=== PATIENT | female | born 1980 | race Caucasian/White ===

== ENCOUNTER 2019-10-24 14:47 | Outpatient (CLI) | payer BC, SELFPAY ==
--- NOTE | ~2019-10-24 | XR_ITS ---
EXAMINATION: XR knee RT min 4V DATE: 10/24/2019 15:20 INDICATION: Right knee pain. TECHNIQUE: 4 views of right knee were obtained. COMPARISON: Right knee radiographs 11/09/2016 FINDINGS: Bone alignment is normal. There is an old fracture of proximal tibia involving the medial a nd lateral tibial plateaus and intercondylar eminence with malunion. On the lateral view, a posterior fracture fragment demonstrates 7 mm posterior displacement, and there is likely a gap at the articul ar surface. There is mild tricompartmental osteoarthritis. There is a small knee joint effusion. Ther e are loose bodies in the knee joint. IMPRESSION: 1. 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 If there is clinical concern for acute fracture, consider CT. 2. 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 3. Small knee joint effusion with loose bodies. Reviewed, dictated and finalized at location [facility]. IMPRESSION: 1. 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 If there is clinical concern for acute fracture, c onsider CT. 2. 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 3. Small knee joint effusion with loose bodies.
== END 2019-10-24 14:48 | disposition home or self-care (01) ==
PROVIDERS: PCP Internal Medicine; Visit Provider Internal Medicine
DX: M25.561 Pain in right knee (principal)
CPT/HCPCS: 73564

== ENCOUNTER 2020-01-24 08:02 | Outpatient (CLI) | payer BC, SELFPAY ==
--- NOTE | ~2020-01-24 | MR_ITS ---
EXAMINATION: MR knee RT wo con DATE: 01/24/2020 09:23 INDICATION: Right knee pain TECHNIQUE: Magnetic resonance imaging (MRI) of the right knee was performed without intravenous contr ast. Sequences included coronal PD-weighted FSE, coronal PD-weighted FS FSE, sagittal T2-weighted FS E, sagittal PD-weighted FS FSE and axial PD weighted fat saturated FSE. 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 There are several foci of susceptibility artifa ct along the margins of the fracture suggesting prior attempted fixation. There is an additional smal l chronic nonunited fracture fragment at the posterior medial aspect of the medial tibial plateau. Partial-thickness cartilage loss in place involving greater than 50% of the cartilage thickness and w ith chondral surface irregularity along both the medial lateral tibial plateaus and weightbearing med ial and lateral femoral condyles. There is scattered subarticular edema and cystic change along the m edial femoral condyle and tiny central subchondral osteophytes along the anterior to central weightbe aring lateral femoral condyle. Shallow chondral ulceration and fissuring at the inferior aspect of th e patella with small osteophyte at the inferior aspect of the patellar apical ridge. Evaluation of the menisci is limited by the distortion in anatomy resulting from the displaced fractu re. The medial meniscus appears to remain grossly intact with the posterior horn extending along the cleft of the nonunited fracture. There is a full-thickness radial tear at the anterior body of the la teral meniscus with separation of the tear margins. Partial-thickness chondral ulceration at the ceph alad aspect of the trochlear groove and adjacent lateral trochlea. Chondral surface regularity along the Likely complete tear of the anterior cruciate ligament with irregular lax appearing ligament fibe rs and with mild anterior subluxation of the tibia relative to the distal femur. The posterior crucia te ligament as well as the medial and fibular collateral ligaments appear intact. The visualized medi al and lateral hamstring tendons as well as the iliotibial band are normal. The extensor mechanism is normal. Physiologic amount of fluid in the right knee joint space. IMPRESSION: 1. 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 2. Complete tear of the anterior cruciate ligament with mild anterior separation of the main tibial f ragment relative to the distal femur. 3. Mild secondary tricompartmental osteoarthritis at the right knee with high-grade chondral malacia in the medial and lateral compartments and moderate grade chondral malacia in the patellofemoral comp artment. Reviewed, dictated and finalized at location A. IMPRESSION: 1. 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 2. Complete tear of the anterior cruciate ligament with mild anterior separatio n of the main tibial fragment relative to the distal femur. 3. Mild secondary tricompartmental osteoarthritis at the right knee with high-g rade chondral malacia in the medial and lateral compartments and moderate grade chondral malacia in the patellofemoral compartment.
== END 2020-01-24 08:03 | disposition home or self-care (01) ==
PROVIDERS: PCP Internal Medicine; Visit Provider Internal Medicine
DX: M25.561 Pain in right knee (principal)
CPT/HCPCS: 73721

== ENCOUNTER 2020-01-28 09:34 | Outpatient (CLI) | payer BC, SELFPAY ==
--- NOTE | ~2020-01-28 | XR_ITS ---
EXAMINATION: XR tibia fibula RT 2V INDICATION: Right leg pain TECHNIQUE: Two views of the right tibia and fibula are obtained. COMPARISON: 10/24/2019 FINDINGS: A chronic fracture deformity of the medial and lateral tibial plateaus with nonunion is aga in noted and not significantly changed. No additional acute osseous findings are evident. Orthopedic hardware is present in the calcaneus. IMPRESSION: 1. No acute osseous abnormality. Reviewed, dictated and finalized at location A.
== END 2020-01-28 09:35 | disposition home or self-care (01) ==
PROVIDERS: PCP Internal Medicine; Visit Provider Internal Medicine
DX: M79.661 Pain in right lower leg (principal)
CPT/HCPCS: 73590

== ENCOUNTER 2020-08-10 14:44 | Outpatient (CLI) | payer BC, SELFPAY ==
--- NOTE | ~2020-08-10 | CT_ITS ---
EXAMINATION: CT abdomen pelvis wo con DATE: 08/10/2020 15:12 INDICATION: Left flank pain. Microhematuria. TECHNIQUE: Computed tomography (CT) of the abdomen and pelvis was performed without intravenous contr ast. Automated exposure control and iterative reconstruction technique were employed. The dose-length product was 612.65 mGy-cm. COMPARISON: CT abdomen and pelvis 01/26/2017 FINDINGS: The visualized portions of the lung bases are clear without pneumonia or pleural effusion. The heart size is normal. No pericardial effusion. The liver, gallbladder, spleen, pancreas, adrenal glands, and left kidney are normal. There are two 3 mm stones in right kidney. There is a 6 mm stone in the distal left ureter. There are no dilated loops of bowel. The appendix is normal. There are no pathologically enlarged lymph nodes. There is no free intraperitoneal fluid. There is mild lumbar spo ndylosis. IMPRESSION: 1. 6 mm stone in distal left ureter. No hydronephrosis. 2. Two 3 mm nonobstructing right kidney stones. Reviewed, dictated and finalized at location A. EDITOR
== END 2020-08-10 14:45 | disposition home or self-care (01) ==
LOC: CHSIMG 14:48
PROVIDERS: PCP Internal Medicine; Visit Provider Internal Medicine
DX: R10.9 Unspecified abdominal pain (principal); R31.9 Hematuria, unspecified
CPT/HCPCS: 74176

== ENCOUNTER 2021-02-23 08:17 | Outpatient (CLI) | payer BC, SELFPAY ==
--- NOTE | ~2021-02-23 | CT_ITS ---
EXAMINATION: CT sinus wo con DATE: 02/23/2021 08:33 INDICATION: Chronic sinusitis. Left eye pain with pressure. Maxillary pain. TECHNIQUE: Computed tomography (CT) of the paranasal sinuses was performed without intravenous contra st. The dose-length product was 279.81 mGy-cm. Automated exposure control and iterative reconstructio n technique were employed. COMPARISON: No prior studies for comparison. FINDINGS: There is no significant mucosal thickening. No air-fluid levels. No mucoperiosteal reaction . Rightward nasal septal deviation. Ostiomeatal units are patent. Mastoids are pneumatized. IMPRESSION: 1. No significant sinus disease. Reviewed, dictated and finalized at location A.
== END 2021-02-23 08:18 | disposition home or self-care (01) ==
LOC: CHSIMG 08:18
PROVIDERS: PCP Internal Medicine; Visit Provider Internal Medicine
DX: J32.9 Chronic sinusitis, unspecified (principal)
CPT/HCPCS: 70486

== ENCOUNTER 2021-05-04 09:24 | Outpatient (CLI) | payer BC, SELFPAY ==
--- NOTE | ~2021-05-04 | MM_ITS ---
EXAMINATION: MM screening tianna BI w pam HISTORY: Baseline screening mammogram TECHNIQUE: Craniocaudal and mediolateral oblique 3-D tomosynthesis images were obtained and synthetic 2-D images were generated. CAD analysis was submitted and interpreted. COMPARISON: None, baseline BREAST PARENCHYMAL COMPOSITION: There are scattered areas of fibroglandular density. FINDINGS: RIGHT BREAST: An asymmetry is present in the middle third of the central breast on the craniocaudal v iew 6 cm from the nipple. LEFT BREAST: There is no evidence of suspicious mass, calcification, or architectural distortion to s uggest malignancy. IMPRESSION: 1. Right breast asymmetry on the craniocaudal view. 2. Additional mammographic views and possible breast ultrasound are recommended to evaluate for malig anup and establish a baseline given that this is the first mammographic examination. BI-RADS Category 0: Incomplete: Needs additional imaging evaluation. Reviewed, dictated and finalized at location A. IMPRESSION: 1. Right breast asymmetry on the craniocaudal view. 2. Additional mammographic views and possible breast ultrasound are recommended to evaluate for malignancy and establish a baseline given that this is the fir st mammographic examination. BI-RADS Category 0: Incomplete: Needs additional imaging evaluation.
== END 2021-05-04 09:25 | disposition home or self-care (01) ==
LOC: CHSIMG 09:25
PROVIDERS: PCP Internal Medicine; Visit Provider Student in an Organized Health Care Education/Training Program
DX: Z12.31 Encounter for screening mammogram for malignant neoplasm of breast (principal)
CPT/HCPCS: 77063; 77067

== ENCOUNTER 2021-05-13 09:47 | Outpatient (CLI) | payer BC, SELFPAY ==
--- NOTE | ~2021-05-13 | MMUS_ITS ---
EXAMINATION: MM diagnostic tianna RT w pam, US breast RT limited HISTORY: Follow-up right breast asymmetries TECHNIQUE: Additional 3-D tomosynthesis images of the right breast were performed and synthetic 2-D i mages were generated. CAD analysis was submitted and interpreted. High resolution Limited right breas t ultrasound was performed. COMPARISON: 05/04/2021 BREAST PARENCHYMAL COMPOSITION: Breast composed of scattered areas of fibroglandular density. FINDINGS: MAMMOGRAPHIC FINDINGS: There are persistent asymmetries in the upper central-lateral aspect of the right breast. No discrete mass or suspicious calcifications. ULTRASOUND: Limited left breast ultrasound: At 10:00, 10 cm from the nipple, there is a cluster of adjacent cysts measuring up to 5 mm in aggregate, likely corresponding to asymmetries. No suspicious masses to sugg est malignancy. IMPRESSION: 1. No evidence for malignancy in the right breast. Benign findings. 2. Routine yearly screening mammogram and regular clinical breast examination are recommended. BI-RADS Category 2: Benign finding(s). Reviewed, dictated and finalized at location A. IMPRESSION: 1. No evidence for malignancy in the right breast. Benign findings. 2. Routine yearly screening mammogram and regular clinical breast examination a re recommended. BI-RADS Category 2: Benign finding(s).
== END 2021-05-13 09:48 | disposition home or self-care (01) ==
LOC: CHSIMG 09:48
PROVIDERS: PCP Internal Medicine; Visit Provider Student in an Organized Health Care Education/Training Program
DX: R92.8 Other abnormal and inconclusive findings on diagnostic imaging of breast (principal)
CPT/HCPCS: 76642; 77061; 77065; G0279

== ENCOUNTER 2022-06-14 08:30 | Outpatient (CLI) | payer BC, SELFPAY ==
--- NOTE | ~2022-06-14 | MM_ITS ---
EXAMINATION: MM screening tianna BI w pam HISTORY: Screening TECHNIQUE: Craniocaudal and mediolateral oblique 3-D tomosynthesis images were obtained and synthetic 2-D images were generated. CAD analysis was submitted and interpreted. COMPARISON: 05/04/2021 BREAST PARENCHYMAL COMPOSITION: There are scattered areas of fibroglandular density. FINDINGS: There is no evidence of suspicious mass, calcification, or architectural distortion to sugg est malignancy in either breast. There has been no suspicious interval change. IMPRESSION: 1. No mammographic evidence of malignancy. 2. Recommend routine screening mammography in one year. BI-RADS Category 1: Negative Reviewed, dictated and finalized at location A. ION LEADER
== END 2022-06-14 08:31 | disposition home or self-care (01) ==
LOC: CHSIMG 08:30
PROVIDERS: PCP Internal Medicine; Visit Provider Internal Medicine
DX: Z12.31 Encounter for screening mammogram for malignant neoplasm of breast (principal)
CPT/HCPCS: 77063; 77067

== ENCOUNTER 2022-08-04 16:55 | Outpatient (RCR) | payer BC, SELFPAY ==
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
--- NOTE | 2022-09-11 10:19 | PTOPREEVAL ---
Assessment and note entered by Milvia Siegel DPT Evaluation Information Assessment Status Re-evaluation Diagnosis R TKR Onset 07/14/2022 Subjective Information Patient reports she is improving and walking better. She reports the bending of the knee is less painful but she is still limited. she reports heavy house hold chores continue to be difficulty . She has been able to ambulate for times up to 30 minutes. Due to limitd ROM he reports MD is thinking she will need a manipulation. RTMD for possible manipulation on 09/21/22 Reported Pain Level Pain Score 3: Self Report Assessment PT Clinical Summary Patient has been seen from 08/04/22 to 09/11/22. She has made good progress towards all goals but continues to lack R knee flexion ROM. She has improved strength and abiity to ambulate prolonged distances and navigate stairs. She continues to have difficulty with heavy house hold chores and would benefit from continued skilled PT to address impairments and return to PLOF. Plan of Care Interventions Electrical Stimulation,Gait Training,Hot Pack/Cold Pack,Intermittent Compression,Manual Therapy, Neuro Re-education,Therapeutic Activities, Therapeutic Exercise PT Services Indicated Yes Treatment Frequency and 2x weekly for 10 visits Duration These treatments will address the objective and functional deficits as defined above. The patient will be advanced safely and appropriately in order for the patient to progress towards his/her prior level of function. Additional exercises will be introduced and as well as a comprehensive home exercise program upon discharge, if needed, ?to ensure carryover of functional gains achieved in the clinic. This treatment plan has been reviewed and agreement upon by the patient.
--- NOTE | 2022-10-04 08:56 | PTOPREEVAL ---
Assessment and note entered by JT File, PT Evaluation Information Assessment Status Re-evaluation Diagnosis R TKR Onset 07/14/2022 Subjective Information patient reports the R knee feels Better overall, but continues to be tight and limited in knee flexion. she reports she follows up with the surgeon next sunday. Reported Pain Level Pain Score 0: Self Report Assessment PT Clinical Summary mrs. german presents to skilled PT services for her skilled PT visit. since her manipulation, she has been coming to therapy 5x weekly. today, she presents with improved strength of the R knee, improved flexion rom of the R knee, and improved gait mechanics. however, she continues to have a slight hitch in ambulation, slight decreased strength of the R knee, and has not achieved full post operative goals for R knee flexion passive or active. she would benefit from continued skilled PT to continue to address her deficits and achieve all goals for skilled PT to return to prior level funcitonal activity performance. Plan of Care Interventions Gait Training,Manual Therapy,Neuro Re-education, Therapeutic Activities,Therapeutic Exercise PT Services Indicated Yes PT Services Indicated Yes Treatment Frequency and continue skilled PT 2 more visits this week and Duration then 3x weekly for 6 visits for a total of 8 more visits after today. These treatments will address the objective and functional deficits as defined above. The patient will be advanced safely and appropriately in order for the patient to progress towards his/her prior level of function. Additional exercises will be introduced and as well as a comprehensive home exercise program upon discharge, if needed, ?to ensure carryover of functional gains achieved in the clinic. This treatment plan has been reviewed and agreement upon by the patient.
--- NOTE | 2022-10-26 17:48 | PTOPPROG ---
Assessment and note entered by Emily Belle, PT Evaluation Information Assessment Status Progress Diagnosis R TKA Onset 07/14/23 Subjective Information Keri Luu reports she fell onto her right knee on 10/21/22 when was taking something to her in their yard. She felt 3 pops in her knee as she fell and she has had increased pain since then. She called her doctor and was told that as long as the pain is improving she is doing okay. She feels she has been having less bending ability since the fall. She does not have a follow up with her physician at this time. Assessment PT Clinical Summary Keri Luu has completed 31 skilled PT visits following a right total knee arthroplasty and subsequent manipulation. She is reporting increased right knee pain and less movement since she fell on her right knee on 10/21/22. She objectively demonstrates a mild regression in right knee extension strength as well as a regression in right knee active and passive flexion ROM. She demonstrates tenderness at the right patella tendon and distal quadriceps, decreased and painful right knee A/PROM, decreased right knee extension strength, and impaired gait. She will continue to benefit from skilled PT to further address these physical and functional deficits. Plan of Care Interventions Electrical Stimulation,Hot Pack/Cold Pack, Intermittent Compression,Manual Therapy,Neuro Re- education,Patient/Caregiver Educati,Therapeutic Activities,Therapeutic Exercise PT Services Indicated Yes Treatment Frequency and 3 times a week for 12 visits Duration These treatments will address the objective and functional deficits as defined above. The patient will be advanced safely and appropriately in order for the patient to progress towards his/her prior level of function. Additional exercises will be introduced and as well as a comprehensive home exercise program upon discharge, if needed, ?to ensure carryover of functional gains achieved in the clinic. This treatment plan has been reviewed and agreement upon by the patient.
== END 2022-10-26 18:18 | disposition still patient (30) ==
LOC: CHSPT 16:55
DX: Z47.1 Aftercare following joint replacement surgery (principal); M25.561 Pain in right knee; Z96.651 Presence of right artificial knee joint
CPT/HCPCS: 97014; 97016; 97110; 97112; 97140; 97161; 97530; G0283

== ENCOUNTER 2022-10-30 16:59 | Outpatient (RCR) | payer BC, SELFPAY ==
--- NOTE | 2022-12-12 17:37 | PTOPDC ---
Assessment and note entered by Emily Belle, PT Evaluation Information Assessment Status Discharge Diagnosis R TKA Onset 07/14/22 Subjective Information Keri Luu reports her right knee is doing well overall. She still gets some pain after performing yard work and she has discomfort at night causing difficulty sleeping. Right knee stiffness is steadily improving as well. She is able to perform daily activities well and can ascend/descend stairs reciprocally. She feels she has improved 90% overall and is ready to be discharged from PT. Reported Pain Level Pain Score 0: Self Report Assessment PT Clinical Summary Keri Luu has completed 43 skilled PT visits following a right total knee arthroplasty and subsequent manipulation. She is reporting a 90% overall improvement since her surgery and is able to perform all daily activities including reciprocal stair ascending/descending without difficulty. She objectively demonstrates improved right knee active ROM to functional measurements, gait without an assistive device with equilateral weight bearing and stride length, and LE strength to good throughout. She will be discharged from skilled PT this date. Plan of Care PT Services Indicated No
== END 2022-12-12 08:37 | disposition home or self-care (01) ==
LOC: CHSPT 16:59
DX: Z47.1 Aftercare following joint replacement surgery (principal); M25.561 Pain in right knee; M24.661 Ankylosis, right knee; Z96.651 Presence of right artificial knee joint
CPT/HCPCS: 97110; 97112; 97140; 97530; 97750

== ENCOUNTER 2023-03-27 12:38 | Outpatient (CLI) | payer BC, SELFPAY ==
--- NOTE | ~2023-03-27 | US_ITS ---
Pelvic ultrasound. Clinical History: Dysfunctional uterine bleeding Technique: Realtime transabdominal and transvaginal scanning of the pelvis was performed. Color flow Doppler and Doppler spectral analysis were performed. Findings: The uterus is anteverted. The endometrial stripe has a thickness of 9 mm. No focal mass is identified. The right ovary measures 1.8 x 1.8 x 1.4 cm. No significant right ovarian or adnexal mass is seen. The left ovary measures 3.4 x 2.5 x 3.6 cm. Left ovarian cyst measures 2.7 cm in diameter. There is no evidence of free fluid in the cul de sac. Impression: 2.7 cm left ovarian cyst, of doubtful clinical significance. Reviewed, dictated and finalized at [facility]. Impression: 2.7 cm left ovarian cyst, of doubtful clinical significance.
== END 2023-03-27 12:39 | disposition home or self-care (01) ==
LOC: CHSIMG 12:39
PROVIDERS: PCP Internal Medicine; Visit Provider Nurse Practitioner Family
DX: N93.8 Other specified abnormal uterine and vaginal bleeding (principal); N83.202 Unspecified ovarian cyst, left side
CPT/HCPCS: 76830; 76856

== ENCOUNTER 2023-05-17 08:04 | Outpatient (CLI) | payer BC, SELFPAY ==
--- NOTE | ~2023-05-17 | XR_ITS ---
XR barium swallow DATE: 05/17/2023 10:26 INDICATION: Dysphagia TECHNIQUE: Fluoroscopy, rapid sequence spot images and overhead radiographs during swallowing of ge um contrast material. 0.6 minutes fluoroscopy time 12.554 Gycm2 total DAP COMPARISON: None FINDINGS: There is normal deglutition and esophageal peristalsis. No stricture, mucosal fold thickeni ng, ulceration, diverticulum or intraluminal mass lesion of the esophagus is detected. There is a small sliding hiatal hernia. IMPRESSION: Small sliding hiatal hernia; otherwise negative Reviewed, dictated and finalized at [facility]. Reviewed, dictated and finalized at location B.
== END 2023-05-17 08:05 | disposition home or self-care (01) ==
LOC: CHSIMG 08:05
PROVIDERS: PCP Internal Medicine; Visit Provider Internal Medicine
DX: R13.10 Dysphagia, unspecified (principal); K44.9 Diaphragmatic hernia without obstruction or gangrene
CPT/HCPCS: 74220

== ENCOUNTER 2023-05-31 01:26 | Day surgery (SDC) | payer BC, SELFPAY ==
[2023-05-22 13:33] VITALS: BMI 35.5
[2023-05-31 07:07] VITALS: BP 152/97; PULSE 90; RESP 20; TEMP 36.4; O2SAT 99
[2023-05-31] MEDS: LACTATED RINGERS 1,000 ML 150 ML IV CONT (07:19)
--- NOTE | 2023-05-31 07:35 | WPDANESEPPF ---
Anes - Initial Pre Proc Eval Procedure: Operation Date: 05/31/23 08:00 Proposed Procedures p Esophagogastroduodenoscopy - Jay Funez DO Date/Time: 05/31/23 07:35 Surgeon: Jay Funez DO Pre Op Diagnosis: dysphagia Patient Data Age: 42 Gender: F Height: 1.6 m Weight: 91.2 kg Last Vital Signs Temp 97.5 F L 05/31/23 07:07 Pulse 90 05/31/23 07:07 Resp 20 05/31/23 07:07 BP 152/97 H 05/31/23 07:07 Pulse Ox 99 05/31/23 07:07 O2 Del Method Room Air 05/31/23 07:07 Allergies Allergy/AdvReac Type Severity Reaction Status Date / Time gabapentin AdvReac Intermediate Other Verified 05/31/23 07:06 Home Medications Medication Instructions Recorded Confirmed Type hydrocodone 5 mg-acetaminophen 325 1 tablet PO Q8H PRN Pain 03/23/21 05/22/23 History mg tablet verapamil 240 mg 24 hr 240 mg PO DAILY 03/23/21 05/22/23 History capsule,extended release ibuprofen 800 mg tablet 800 mg PO BID 04/13/21 05/22/23 History magnesium oxide 400 mg PO DAILY 04/12/23 05/22/23 History multivitamin (Daily Multi-Vitamin 1 tablet PO DAILY 04/12/23 05/22/23 History tablet) ubrogepant 100 mg tablet (Ubrelvy) 100 mg PO ONCE PRN Migraine 04/12/23 05/22/23 History Headache pantoprazole 40 mg tablet,delayed 40 mg PO DAILY 05/22/23 05/22/23 History release Patient hx anesthesia problems: none Family hx anesthesia problems: none Results Review: All pre-operative results and documents have been reviewed as part of the pre-operative evaluation. [facility] Past Medical History Medical History Calcaneus fracture Hypertension Migraine headache Seasonal allergies Tibial plateau fracture, left Surgical History Surgical History History of arthroscopy of right knee History of bilateral tubal ligation [place] teeth removed Family History Family History Mother Depression Hypertension Diabetes mellitus Sibling Hypertension Grandparent Diabetes mellitus Hypertension Cerebrovascular accident Father Alcoholism Social History Social History Smoking status: Never smoker Smoking end date: 07/30/10 Alcohol intake: never Alcohol use details: social Substance use: never Substance use type: does not use Lack of Transportation: No Lack of Food: Never True Current Housing: I Have Housing Concerned About Future Housing: No Difficulty Paying Gas/Electric Bills: No Difficulty Paying for Meds: No Currently Unemployed: No Education: High School Diploma/GED Difficulty w/ Childcare or Family Care: No Living arrangements: with family Gender identity (if verbalized by the patient): Female Spiritual care concerns: No Agree to blood products: Yes Anes - Eval Final PreProcedure Day of Procedure 05/31/23 07:35 Patient weight: obese Heart: regular rate and rhythm Lungs: clear to auscultation Airway: Mallampati scale class II Neurological: alert and oriented Last oral intake: >/= 8 hours ASA classification: III Emergent: no Anesthetic plan: proceed Anesthesia type and monitoring: general GIVS and standard monitoring Results Review: All pre-operative results and documents have been reviewed as part of the pre-operative evaluation. Informed Consent: The patient's anesthetic plan and its attendant risks and benefits were discussed with the patient/family/POA. Questions were solicited and answers provided to the satisfaction of the patient/family/POA.
--- NOTE | 2023-05-31 07:53 | PM.IMHP ---
H&P: HPI History of Present Illness Date/Time: 05/31/23 07:53 Chief Complaint: Dysphagia Narrative: This is a 42-year-old woman who presents for occasional dysphagia with solids. She denies any dysphagia with liquids. She has had to regurgitate food at times. She does also report a history of GERD. She takes pantoprazole daily and this helps. She denies any hematemesis. Review of Systems Review of Systems: All systems reviewed & are unremarkable except as noted in HPI and below Constitutional: Constitutional: Denies chills, Denies fever(s), Denies headache(s) and Denies weight loss Eyes: Eyes: Denies change in vision ENT: Denies dizziness, Denies headache(s), Denies neck mass and Denies throat swelling Cardiovascular: Cardiovascular: Denies chest pain, Denies lightheadedness and Denies dyspnea Respiratory: Respiratory: Denies cough, Denies dyspnea and Denies wheezing Gastrointestinal: Gastrointestinal: Denies abdominal pain, Denies change in bowel habits, Denies nausea and Denies vomiting Genitourinary: Genitourinary: Denies hematuria and Denies dysuria Musculoskeletal: Musculoskeletal: Reports as per HPI Integumentary/Breasts: Skin/Breast: Reports as per HPI Neurologic: Denies dizziness and Denies headache(s) Allergic/Immunologic: Allergic/Immunologic: Denies throat swelling and Denies wheezing PMF Past Medical History Medical History Calcaneus fracture Hypertension Migraine headache Seasonal allergies Tibial plateau fracture, left Surgical History Surgical History History of arthroscopy of right knee History of bilateral tubal ligation [place] teeth removed Family History Family History Mother Depression Hypertension Diabetes mellitus Sibling Hypertension Grandparent Diabetes mellitus Hypertension Cerebrovascular accident Father Alcoholism Social History Social History Smoking status: Never smoker Smoking end date: 07/30/10 Alcohol intake: never Alcohol use details: social Substance use: never Substance use type: does not use Lack of Transportation: No Lack of Food: Never True Current Housing: I Have Housing Concerned About Future Housing: No Difficulty Paying Gas/Electric Bills: No Difficulty Paying for Meds: No Currently Unemployed: No Education: High School Diploma/GED Difficulty w/ Childcare or Family Care: No Living arrangements: with family Gender identity (if verbalized by the patient): Female Spiritual care concerns: No Agree to blood products: Yes Meds Home Medications and Allergies Home Medications Medication Instructions Recorded Confirmed Type hydrocodone 5 mg-acetaminophen 325 1 tablet PO Q8H PRN Pain 03/23/21 05/22/23 History mg tablet verapamil 240 mg 24 hr 240 mg PO DAILY 03/23/21 05/22/23 History capsule,extended release ibuprofen 800 mg tablet 800 mg PO BID 04/13/21 05/22/23 History magnesium oxide 400 mg PO DAILY 04/12/23 05/22/23 History multivitamin (Daily Multi-Vitamin 1 tablet PO DAILY 04/12/23 05/22/23 History tablet) ubrogepant 100 mg tablet (Ubrelvy) 100 mg PO ONCE PRN Migraine 04/12/23 05/22/23 History Headache pantoprazole 40 mg tablet,delayed 40 mg PO DAILY 05/22/23 05/22/23 History release Allergies Allergy/AdvReac Type Severity Reaction Status Date / Time gabapentin AdvReac Intermediate Other Verified 05/31/23 07:06 Vital Signs Vital Signs - 24 hr 05/31/23 07:07 Temperature 36.4 C L Pulse Rate 90 Respiratory Rate 20 Blood Pressure 152/97 H Pulse Oximetry 99 Oxygen Delivery Room Air Exam Const: General: no acute distress and alert Orientation/consciousness: patient oriented x3 HENMT: Head: normocephalic and atraumatic Ears: h
[2023-05-31 08:11] VITALS: BP 136/85; PULSE 78; RESP 22; O2SAT 99
[2023-05-31 08:21] VITALS: BP 131/90; PULSE 70; RESP 23; O2SAT 98
[2023-05-31 08:31] VITALS: BP 149/90; PULSE 72; RESP 24; O2SAT 98
== END 2023-05-31 08:34 | disposition home or self-care (01) ==
PROVIDERS: PCP Internal Medicine; Visit Provider Surgery
PROC: 0DJ08ZZ Inspection of Upper Intestinal Tract, Via Natural or Artificial Opening Endoscopic (ICD-10-PCS; CPT 43235; principal; 2023-05-31 08:00)
DX: R13.19 Other dysphagia (principal); K21.00 Gastro-esophageal reflux disease with esophagitis, without bleeding; K44.9 Diaphragmatic hernia without obstruction or gangrene; I10 Essential (primary) hypertension; Z82.3 Family history of stroke; Z79.891 Long term (current) use of opiate analgesic; E66.9 Obesity, unspecified; Z68.35 Body mass index [BMI] 35.0-35.9, adult
CPT/HCPCS: 43239; 88305; J2704; J7120

== ENCOUNTER 2023-06-15 07:29 | Outpatient (CLI) | payer BC, SELFPAY ==
--- NOTE | ~2023-06-15 | MM_ITS ---
EXAMINATION: MM screening [facility] BI w pam HISTORY: Screening mammogram TECHNIQUE: Craniocaudal and mediolateral oblique 3-D tomosynthesis images were obtained and synthetic 2-D images were generated. CAD analysis was submitted and interpreted. COMPARISON: 06/14/2022, 05/13/2021, 05/04/2021 BREAST PARENCHYMAL COMPOSITION: There are scattered areas of fibroglandular density. FINDINGS: No suspicious mass, calcification, or architectural distortion are identified in either [place] ast to suggest malignancy. There has been no suspicious interval change. IMPRESSION: 1. No mammographic evidence of malignancy. 2. Recommend routine screening mammography in one year. BI-RADS Category 1: Negative Reviewed, dictated and finalized at location A. 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
== END 2023-06-15 07:30 | disposition home or self-care (01) ==
LOC: CHSIMG 07:30
PROVIDERS: PCP Internal Medicine; Visit Provider Registered Nurse
DX: Z12.31 Encounter for screening mammogram for malignant neoplasm of breast (principal)
CPT/HCPCS: 77063; 77067

== ENCOUNTER 2024-03-20 13:21 | Outpatient (CLI) | payer OTHER, SELFPAY ==
--- NOTE | 2024-03-20 13:28 | ECG_ITS ---
Test Date: 2024-03-20 13:50:02 Measurements Intervals [place] Rate: 87 P: 47 UT: 178 QRS: 11 QRSD: 78 T: 2 QT: 349 QTc: 421 Interpretive Statements SINUS RHYTHM POSSIBLE LEFT ATRIAL ENLARGEMENT [-0.1mV P WAVE IN V1/V2] No previous ECG available for comparison Electronically Signed On 03-20-2024 15:17:40 CDT by Raj Borrego M.D.
== END 2024-03-20 13:22 | disposition home or self-care (01) ==
PROVIDERS: PCP Internal Medicine; Visit Provider Obstetrics & Gynecology
DX: N92.0 Excessive and frequent menstruation with regular cycle (principal); I10 Essential (primary) hypertension; Z01.818 Encounter for other preprocedural examination
CPT/HCPCS: 36415; 86850; 86900; 86901; 93005

== ENCOUNTER 2024-03-26 01:26 | Day surgery (SDC) | payer OTHER, SELFPAY ==
[2024-03-18 10:41] VITALS: BMI 35.7
--- NOTE | 2024-03-18 11:12 | PC.NURSE ---
Report to the Outpatient Waiting Room, entrance under the green pavilion located off [facility], at 0600 on 03-26-24. Planned Procedure Time: 07. Time changes happen often and if your time is changed the preop area will call you the afternoon before. - You and your visitor will be asked to self-screen and do not enter if you have any COVID symptoms. - A mask is optional within the hospital at this time. Patients may have clear liquids (water, carbonated beverages, clear teas, apple juice) until 3 hours prior to surgery with a maximum of 20 ounces. 0430 - No food from midnight until time of surgery - Infants may have breast milk until 4 hours before surgery, formula 6 hours prior to surgery. - Children will be allowed to drink immediately following surgery. If applicable, please bring a bottle or sippy cup to assist with drinking. Juice, water, soda, and popsicles are readily available. For infants on formula, please bring formula the day of surgery. Pacifiers are allowed. Take the following medications with a SIP of water the morning of surgery: [place] if needed DO NOT STOP ANY OF YOUR OTHER PRESCRIPTION MEDICATIONS PRIOR TO SURGERY ?EXCEPT THE FOLLOWING Medications to discontinue per physician: vitamins and supplements; ibuprofen Date to take last dose: 03-23-24; Per Dr. Saldaña Please no make-up, nail lebanese, hairspray, perfume, deodorant, or body powder the day of surgery. No jewelry (including any body piercings) or valuables the day of surgery, leave them at home. Please take a shower or bath the night before, or the morning of, surgery with an antibacterial soap. Wear comfortable, loose fitting clothing. Children are encouraged to wear pajamas. - Jewelry must be removed prior to entering the operating room. Rings and piercings that are not removed may be cut off. - The hospital will not accept responsibility for valuables. - Please leave all valuables, including medications, at home the day of surgery. If you are going home after surgery, a licensed otr flatbed company truck driver must drive you home. - NO public transportation without another adult if you receive anesthesia. - We recommend that an adult stay with you for 24 hours following discharge. - We also recommend that you do not drive, make important decision, drink alcoholic beverages, or take any drugs that were not prescribed by your health care provider for at least 24 hours after your discharge time. For Pediatric surgeries, we recommend two adults accompany the child home. Follow any additional instructions given to you from your surgeon. If you or anyone in your household have experienced Covid symptoms in the past week, please notify your surgeon or the nurse liaison at the phone number below for possible testing. Telephone instructions given to Keri Luu and asked if any additional questions and then verbalized understanding. Patient advised to call surgeon office or pre surgery nurse liaison [phone] if any additional questions.
[2024-03-26] VITALS (13 sets, daily range): BP systolic 132–159; BP diastolic 72–98; PULSE 79–109; RESP 14–20; TEMP 36.3–37.1; O2SAT 95–100
[2024-03-26] MEDS: ACETAMINOPHEN 500 MG TABLET 1000 MG PO (06:45)
[2024-03-26] MEDS: KETOROLAC 15 MG/ML VIAL (*BKC) IV PUSH (06:45)
[2024-03-26] MEDS: LACTATED RINGERS 1,000 ML 30 ML IV CONT ×2 (06:45→09:35)
--- NOTE | 2024-03-26 07:11 | WPDANESEPPF ---
Anes - Initial Pre Proc Eval Procedure: Operation Date: 03/26/24 07:30 Proposed Procedures p Robotic Assisted Total Vaginal Hysterectomy with Bilateral Salpingectomy - Wayne Saldaña MD Date/Time: 03/26/24 07:11 Surgeon: Wayne Saldaña MD Pre Op Diagnosis: excessive and frequent menstrual cycle Patient Data Age: 43 Gender: F Height: 1.6 m Weight: 91.63 kg Allergies Allergy/AdvReac Type Severity Reaction Status Date / Time gabapentin AdvReac Intermediate Other Verified 03/20/24 15:43 Home Medications Medication Instructions Recorded Confirmed Type hydrocodone 5 mg-acetaminophen 325 1 tablet PO Q8H PRN Pain 03/23/21 03/25/24 History mg tablet verapamil 240 mg 24 hr 240 mg PO DAILY 03/23/21 03/25/24 History capsule,extended release ibuprofen 800 mg tablet 800 mg PO BID PRN Pain 04/13/21 03/25/24 History ubrogepant 100 mg tablet (Ubrelvy) 100 mg PO ONCE PRN Migraine 04/12/23 03/25/24 History Headache pantoprazole 40 mg tablet,delayed 40 mg PO DAILY 05/22/23 03/25/24 History release norethindrone (contraceptive) 0.35 0.35 mg PO DAILY #84 tabs 09/05/23 03/25/24 Rx mg tablet nortriptyline 10 mg capsule 30 mg PO DAILY 12/06/23 03/25/24 History cholecalciferol (vitamin D3) 25 25 mcg PO DAILY 03/18/24 03/25/24 History mcg (1,000 unit) tablet (Vitamin D3) scopolamine base 1 mg over 3 days 1 patch transdermal Q3D PRN nausea 03/25/24 Rx transdermal patch and vomiting #1 ea Patient hx anesthesia problems: post op nausea/vomiting (Hx of PONV, pt had scop patch on early this am but got very dizzy and removed prior to arrival. ) Family hx anesthesia problems: none Results Review: All pre-operative results and documents have been reviewed as part of the pre-operative evaluation. [facility] Past Medical History Medical History Calcaneus fracture Hypertension Migraine headache Seasonal allergies Tibial plateau fracture, left Surgical History Surgical History History of arthroscopy of right knee History of bilateral tubal ligation [place] teeth removed Family History Family History Mother Depression Hypertension Diabetes mellitus Sibling Hypertension Grandparent Diabetes mellitus Hypertension Cerebrovascular accident Father Alcoholism Social History Social History Smoking status: Never smoker Second hand tobacco smoke exposure: No Smoking end date: 07/30/10 Alcohol intake: current Alcohol use details: rarely Substance use: never Substance use type: does not use Lack of Transportation: No Lack of Food: Never True Current Housing: I Have Housing Concerned About Future Housing: No Difficulty Paying Gas/Electric Bills: No Difficulty Paying for Meds: No Currently Unemployed: No Education: High School Diploma/GED Difficulty w/ Childcare or Family Care: No Living arrangements: with family Gender identity (if verbalized by the patient): Female Spiritual care concerns: No Agree to blood products: Yes Anes - Eval Final PreProcedure Day of Procedure 03/26/24 07:11 Patient weight: obese Heart: regular rate and rhythm Lungs: clear to auscultation Airway: Mallampati scale class II Neurological: alert and oriented Last oral intake: >/= 8 hours ASA classification: II Emergent: no Anesthetic plan: proceed Anesthesia type and monitoring: general ETT and standard monitoring Results Review: All pre-operative results and documents have been reviewed as part of the pre-operative evaluation. HTN, ex smoker quit approx 1999. Informed Consent: The patient's anesthetic plan and its attendant risks and benefits were discussed with the patient/family/POA. Questions were solicited and answers
--- NOTE | 2024-03-26 07:27 | WPDHPUPDATE1 ---
History and Physical Update Update Date/Time: 03/26/24 07:27 History and Physical has been reviewed, including an updated exam of the patient. There are NO changes in the patient's condition. Risks, benefits, and alternatives have been discussed and questions answered. Patient agrees to proceed with procedure.
[2024-03-26] MEDS: ceFAZolin 2 GM/D5W 50 ML 2 GM/50 ML BAG IVPB (07:33)
[2024-03-26] MEDS: BUPivacaine HCL 0.5% 10 ML AMP 20 ML INFILTRATE (08:40)
--- NOTE | 2024-03-26 09:15 | W.PM.PROC2 ---
Procedure Note - Detailed Date of Procedure 03/26/24 Pre-op Diagnosis excessive and frequent menstrual cycle Post-op Diagnosis Same Procedure Performed Robotic assisted laparoscopic hysterectomy with bilateral salpingectomy Surgeon Wayne Saldaña MD Business Instructor Juan Garcia Anesthesia General Indications Excessive prolonged periods not responding to hormonal therapy, pt opted for definitive treatment. Findings Small corpus luteum ovarian cyst on left ovary, normal uterus and ovaries. Description of Procedure After informed consent was obtained she was taken to the operating room and general endotracheal anesthesia was administered. She was placed in low lithotomy position. An exam under anesthesia was performed. . She was and prepped and draped in sterile fashion. Infante catheter placed in bladder. Attention was turned to the vagina speculum was inserted. Single-tooth tenaculum placed on anterior lip of the cervix the uterus sounded to 10 cm. The cervix was dilated to a 8 Odell dilator. A size 10 uterine manipulator was inserted and secured. A size 3.0 colp cup was secured in the vagina. Then attention was turned to the abdomen with new sterile gloves. .5% marcaine injected subcutaneously. An incision was made horizontal 2 cm above the umbilicus. A verres needle was inserted. Confirmation into abdomen obtained with normal peritoneal pressures. A Pneumoperitoneum of 15 mm per mercury was obtained. No abdominal or pelvic adhesions noted. A small incision was made approximately 6 cm lateral to the port on the left side of the port. A size 8mm robotic port was inserted under laparoscopic visualization into the abdomen on the left side. Attention was turned to right side and incision made and 8mm robotic port inserted. Superior to this an incision was made and an magistrate assistant port was inserted. She was placed in trendelenburg position. Robotic arms were attached to port. Attention was turned to surgery console. The right round ligament was ligated. The anterior leaf of broad ligament was dissected and the vesicouterine peritoneum was dissected. Bladder was dissected from lower uterine segment. The right fallopian tube segment was ligated from broad ligament and the right ovarian ligament was ligated. The ascending vessels were cauterized. The uterine vessels were ligated. Attention was turned to the left round ligament which was ligated and the anterior leaf of the broad ligament was dissected anteriorly. The rest of the vesicouterine peritoneum was dissected off of the uterus. Once the bladder was dissected below the colp cup then the posterior leaf of the broad ligament was further dissected. The corpus luteum cyst on the left ovary was cauterized. Fluid suctioned. Hemostasis noted. The left ovarian ligament was ligated. The ascending uterine vessels were ligated. The uterine arteries were ligated. The cardinal ligaments were ligated. This was done on both sides. An incision was made anterior colpotomy incision was made and this was carried around until the cervix was removed from the vagina. The uterus and cervix were removed through the vagina. The vaginal cuff was closed in a running fashion with 0 V lock suture. Hemostasis was noted. The pelvis was irrigated. Hemostasis noted. Hemoderm was applied in the pelvis. The patient was taken out of Trendelenburg position. The pneumoperitoneum was released and the ports were removed. The skin incisions were closed with 4 O Vicryl and skin glue. The patient was extubated in operating room. The sponge count was correct x2. Patient tolerated procedure well and was taken to recovery in stable condition. Estimated Blood Loss 20 Urine Output 450 Drains No Packing No Pathology Yes (Uterus with cervix and fallopian tubes. Right ovary.) Complications No immediate complications Condition Stable Disposition PACU [facility] Billing Surgery - Charge Forward: Surgery Billing
[2024-03-26] MEDS: fentaNYL CITRATE INJ (*CRX) 100 MCG/2 ML VIAL 25 MCG IV PUSH ×8 (09:55→10:15)
[2024-03-26] MEDS: diazePAM INJ (*CRX) 10 MG/2 ML SYRINGE 2 MG IV PUSH (10:23)
[2024-03-26] MEDS: HYDROmorphone HCL INJ (*CRX) 1 MG/ML SYR 0.25 MG IV PUSH ×2 (10:35→10:42)
[2024-03-26] MEDS: SIMETHICONE 80 MG TAB.CHEW PO ×2 (11:34→16:08)
[2024-03-26] MEDS: KETOROLAC 30 MG/ML VIAL (*BKC) IV PUSH ×3 (11:35→23:32)
[2024-03-26] MEDS: DEXTROSE 5%/0.45% SOD CHL 1,000 ML 125 ML IV CONT (11:36)
[2024-03-26] MEDS: HYDROcodone/acetaminophen (*CRX) 10-325 MG TABLET 1 TAB PO ×3 (12:54→20:56)
--- NOTE | 2024-03-26 13:08 | ADMGEN ---
1109-This patient, Keri Luu, was admitted to OB 2nd Floor Room 279-00. Patient/family oriented to hospital policies and general routines including ID bracelet, bed and alarms, visiting hours, pain management, procedures, bathroom and other care routines, personal items, smoking policy, room service/diet, and visiting hours. Information on how to activate the Rapid Response Team has been discussed. Patient/Family are encouraged to report perceived risks to care and to ask questions if they do not understand what they are told or what they should do.
--- NOTE | 2024-03-26 16:25 | PC.NURSE ---
Pt refused at this time to wear abdominal binder; RN placed in room; pt states she may put on at a later time when cramping isn't so bad.
[2024-03-26] MEDS: NORTRIPTYLINE HCL 10 MG CAPSULE 30 MG PO (17:45)
[2024-03-26] MEDS: PANTOPRAZOLE 40 MG TABLET PO (20:57)
[2024-03-26] MEDS: VERAPAMIL HCL ER 120 MG TABLET 240 MG PO (21:35)
[2024-03-27] MEDS: HYDROcodone/acetaminophen (*CRX) 10-325 MG TABLET 1 TAB PO ×2 (01:09→05:58)
[2024-03-27 04:30] VITALS: BP 127/71; PULSE 92; RESP 16; TEMP 36.6; O2SAT 97
[2024-03-27] MEDS: KETOROLAC 30 MG/ML VIAL (*BKC) IV PUSH (05:57)
[2024-03-27] MEDS: SIMETHICONE 80 MG TAB.CHEW PO (07:05)
[2024-03-27 07:06] VITALS: PULSE 92; RESP 16; O2SAT 97
[2024-03-27 08:05] VITALS: BP 134/83; PULSE 84; RESP 16; TEMP 36.7; O2SAT 98
--- NOTE | 2024-03-27 09:18 | PM.GYNPNOP ---
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 Doing well. Discussed her procedure with her. Will discharge home today. She has adequate pain medicine at home. Discharge precautions discussed. Postoperative Procedures: Procedures Operation Date: 03/26/24 07:30 Actual Procedure Side Surgeon p Robotic Assisted Total Vaginal Hysterectomy with Bilateral Salpingectomy Bilateral Wayne Saldaña MD Time Spent With Patient Time: Total time spent is greater than 50% in coordination of care (as documented) at patient's floor/unit and/or counseling patient: Time with patient: less than 15 minutes EXECUTIVE VICE PRESIDENT OF SALES- PN:Subj Post-Op Subjective Date/time seen: 03/27/24 09:18 Interval history: She states she has adequate pain control. She has ambulated and urinated without problems. She tolerated regular food had positive flatus denies chest pain or shortness of breath denies leg pain. Subjective: pain is well controlled and patient is tolerating oral intake Review of Systems Review of Systems: All systems reviewed & are unremarkable except as noted in HPI and below Cardiovascular: Cardiovascular: Reports no additional cardiovascular complaints Respiratory: Respiratory: Reports no additional respiratory complaints Gastrointestinal: Gastrointestinal: Denies nausea and Denies vomiting Genitourinary: Genitourinary: Reports no additional female genitourinary complaints Musculoskeletal: Musculoskeletal: Reports no additional musculoskeletal complaints Exam Const: General: comfortable and no acute distress Orientation/consciousness: oriented to person and oriented to place Resp: Auscultation: clear to auscultation bilaterally Cardio: Rate: regular rate Rhythm: regular rhythm GI: GI Palp: Yes Soft to palpation and No Tenderness to palpation present (GI) Auscultation: normal bowel sounds Other: Incisions healing well abdomen soft Neuro: General: oriented to person, oriented to place and oriented to time Extrem: General: no calf tenderness Psych: Mental Status: mental status grossly normal EXECUTIVE VICE PRESIDENT OF SALES - PN: Obj Data Vital Signs Vital Signs: Vital Signs - 24 hr 03/26/24 09:35 03/26/24 09:50 03/26/24 10:05 Temperature 97.7 F Pulse Rate 109 H 85 82 Respiratory Rate 20 17 14 Blood Pressure 159/88 H 143/75 H 140/72 Pulse Oximetry 100 100 95 Oxygen Delivery Simple Face Mask Simple Face Mask Room Air Oxygen Flow Rate 8 10 03/26/24 10:20 03/26/24 10:35 03/26/24 10:50 Temperature Pulse Rate 91 90 92 Respiratory Rate 16 14 17 Blood Pressure 146/80 H 158/72 H 157/88 H Pulse Oximetry 97 98 99 Oxygen Delivery Nasal Cannula Nasal Cannula Nasal Cannula Oxygen Flow Rate 2 2 2 03/26/24 10:58 03/26/24 11:30 03/26/24 12:15 Temperature 97.8 F Pulse Rate 88 79 79 Respiratory Rate 14 18 18 Blood Pressure 143/85 H Pulse Oximetry 98 98 99 Oxygen Delivery Nasal Cannula Nasal Cannula Nasal Cannula Oxygen Flow Rate 2 2 1 03/26/24 16:10 03/26/24 16:10 03/26/24 11:10 Temperature 98.8 F 98.2 F Pulse Rate 84 84 93 Respiratory Rate 18 18 16 Blood Pressure 132/85 150/98 H Pulse Oximetry 95 95 98 Oxygen Delivery Room Air Oxygen Flow Rate 03/26/24 12:15 03/26/24 21:00 03/26/24 21:00 Temperature 98.1 F Pulse Rate 79 102 H Respiratory Rate 18 18 Blood Pressure 142/88 H 140/85 Pulse Oximetry 99 97 Oxygen Delivery Room Air Oxygen Flow Rate 03/27/24 04:30 03/27/24 04:40 03/27/24 07:06 Temperature 97.9 F Pulse Rate 92 92 Respiratory Rate 16 16 Blood Pressure 127/71 Pulse Oximetry 97 97 Oxygen Delivery Room Air Room Air Oxygen Flow Rate Intake/Output Intake/Output: Intake & Output 03/24/24 03/25/24 03/26/24 03/27/24 23:59 23:59 23:59 23:59 Intake Total 1565.8 1400 Output Total 4100 2200 [facility] -2534.2 -800
--- NOTE | 2024-03-27 09:46 | PM.DS ---
DS: Admitting Diagnosis Discharge Date March 27, 2024 Admitting Diagnosis abnormal bleeding DS: Discharge Diagnosis Discharge Diagnosis (1) Heavy menstrual bleeding: Code(s): N92.0 - Excessive and frequent menstruation with regular cycle Status: Acute (2) Status post hysterectomy: Code(s): Z90.710 - Acquired absence of both cervix and uterus Status: Acute DS: Summary Hospital Course Reason for hospitalization: planned hysterectomy Hospital Course: she was admitted for robotic assisted laparoscopic hysterectomy she had an uncomplicated hysterectomy. Postoperatively she did well. She had adequate pain control. She was ambulating well urinating well had tolerated regular diet on postop day 1 she was discharged to home on postop day 1. Discharge precautions discussed. Status at Discharge Functional status at discharge: independent ambulation Time Spent with Patient Time attestation: Total time spent providing and/or coordinating discharge services: Exam Const: General: comfortable and no acute distress Orientation/consciousness: oriented to person, oriented to place and oriented to time Resp: Auscultation: clear to auscultation bilaterally Cardio: Rate: regular rate Rhythm: regular rhythm GI: GI Palp: Yes Soft to palpation and No Tenderness to palpation present (GI) Auscultation: normal bowel sounds Other: Incisions healing well Neuro: General: oriented to person, oriented to place and oriented to time Extrem: General: no calf tenderness Psych: Mental Status: mental status grossly normal DS: Data Data Completed and Pending Pending studies at discharge: Pending at discharge 03/26/24 08:26 Surgical [PTH] Routine Procedures/Treatments: robotic assisted laparoscopic total hysterectomy with bilateral salpingectomy Discharge Plan Discharge Patient Disposition: Home, Self-Care Stand Alone Forms: General Discharge Instructions Discharge Medications: No Action ibuprofen 800 mg tablet 800 mg PO BID PRN (Reason: Pain) verapamil 240 mg capsule,ext rel. pellets 24 hr 240 mg PO DAILY Patient Comments: patient takes HS hydrocodone-acetaminophen 5-325 mg tablet 1 tablet PO Q8H PRN (Reason: Pain) norethindrone (contraceptive) 0.35 mg tablet 0.35 mg PO DAILY Qty: 84 3RF Patient Comments: patient takes HS Ubrelvy 100 mg tablet 100 mg PO ONCE PRN (Reason: Migraine Headache) Rx Instructions: as a single dose; may repeat once in >=2 hours after first dose if needed nortriptyline 10 mg capsule 30 mg PO DAILY Patient Comments: patient takes 2-3 pills every evening cholecalciferol (vitamin D3) [Vitamin D3] 25 mcg (1,000 unit) Tablet 25 mcg PO DAILY pantoprazole 40 mg tablet,delayed release (DR/EC) 40 mg PO DAILY Patient Comments: patient takes HS scopolamine base 1 mg over 3 days patch 3 day 1 patch transdermal Q3D PRN (Reason: nausea and vomiting) Qty: 1 0RF Rx Instructions: apply night before surgery
== END 2024-03-27 10:17 | disposition home or self-care (01) ==
LOC: ANHSURGERY 05:58 → ANHOB2 15:17
PROVIDERS: PCP Internal Medicine; Visit Provider Obstetrics & Gynecology
PROC: (CPT 58552; principal; 2024-03-26 07:30)
DX: D25.1 Intramural leiomyoma of uterus (principal); N92.0 Excessive and frequent menstruation with regular cycle; N83.12 Corpus luteum cyst of left ovary; N80.03 Adenomyosis of the uterus; I10 Essential (primary) hypertension; E66.9 Obesity, unspecified; Z68.36 Body mass index [BMI] 36.0-36.9, adult
CPT/HCPCS: 58552; S2900; 36415; 86850; 86900; 86901; 88307; 93005; 99199; A9270; J0690; J1100; J1170; J1885; J2250; J2405; J2704; J3010; J3360; J7030; J7120